=== PATIENT | male | born 2000 | race Caucasian/White ===

== ENCOUNTER 2020-05-28 21:54 | Emergency (ER) | payer OTHER ==
[~2020-05-28] VITALS: Ht 177.8 cm; Wt 65.3 kg
[2020-05-28 22:02] VITALS: Ht 177.8 cm; Wt 65.3 kg
[2020-05-29 00:59] VITALS: BP 118/78
== END 2020-05-29 00:59 | disposition home or self-care (01) ==
LOC: ED 21:54
DX: M51.26 Other intervertebral disc displacement, lumbar region (principal)

== ENCOUNTER 2020-06-26 03:14 | Emergency (ER) | payer OTHER ==
[~2020-06-26] VITALS: Ht 175.3 cm; Wt 67.4 kg
[2020-06-26 03:32] VITALS: Ht 175.3 cm; Wt 67.4 kg
[2020-06-26 05:34] VITALS: BP 110/50
== END 2020-06-26 05:34 | disposition home or self-care (01) ==
LOC: ED 03:14
DX: S16.1XXA Strain of muscle, fascia and tendon at neck level, initial encounter (principal); S09.8XXA Other specified injuries of head, initial encounter; V49.9XXA Car occupant (driver) (passenger) injured in unspecified traffic accident, initial encounter; Y93.89 Activity, other specified; Y92.89 Other specified places as the place of occurrence of the external cause; Y99.8 Other external cause status
CPT/HCPCS: J1885